=== PATIENT | female | born 1985 | race Caucasian/White ===

== ENCOUNTER → 2019-06-08 10:45 | Outpatient (CLI) | payer BC, SELFPAY ==
[2019-06-08 09:53] VITALS: BMI 33.0
== END ==
PROVIDERS: Referring Provider Obstetrics & Gynecology; Visit Provider Obstetrics & Gynecology
DX: Z34.82 Encounter for supervision of other normal pregnancy, second trimester (principal)
CPT/HCPCS: 36415

== ENCOUNTER 2019-07-27 12:05 | Outpatient (CLI) | payer BC, SELFPAY ==
[2019-07-27 11:30] VITALS: BMI 35.0
[2019-07-27 12:17] VITALS: BMI 34.9
[2019-07-27 12:51] LABS: Hematocrit 37.7 % (37-47); Hemoglobin 12.5 g/dL (12.0-15.0); Mean Corp Hgb Conc 33.2 g/dL (32-36); Mean Corpuscular Hgb 30.7 pg (27.0-32.0); Mean Corpuscular Volume 92.6 fL (81-99); Mean Platelet Vol. 11.9 fl (6.2-12.0); Platelet Count 168 K/mm3 (150-450); RBC Distribution Width CV 13.3 % (11.6-14.6); RBC Distribution Width SD 44.7 fl (35.1-43.9); Red Blood Count 4.07 M/mm3 (4.2-5.4); White Blood Count 12.7 K/mm3 (4.4-11.0)
[2019-07-27 12:57] LABS: Protein, Urine (Random) < 6.0 mg/dL (<11.9); Protein:Creat Ratio 119 mg/g CRE (0-200)
[2019-07-27 13:06] LABS: Prothrombin Time (Protime)PT. 12.6 SECONDS (11.7-14.9)
[2019-07-27 13:20] LABS: Partial Thromboplast Time 24.4 Seconds (24.1-36.2)
[2019-07-27 13:22] LABS: AST(SGOT) 31 U/L (15-37); Alanine Aminotransfer ALT/SGPT 26 U/L (13-56); Creatinine, Serum 0.54 mg/dL (0.55-1.02); EST Glomerular Filtration Rate 138 mL/min (>60); Est Glom Filt Rate - Afr Amer 167 mL/min (>60); Estimated Creatinine Clearance 149.48 ml/min; Uric Acid 4.2 mg/dL (2.6-6.0)
--- NOTE | 2019-07-27 14:00 | OB.TRI.HP_ITS ---
- Problem List (1) Hypertension affecting in third trimester Status: Acute Comment: Sent from physician office for elevated blood pressures with systolic in the 150s range. Pre-e workup to be done. History of Present Illness Date of Service: 07/27/19 Was patient seen by the physician?: No Reason For Visit: R/O PRE-E Date of Service: 07/27/19 Final DAV: 08/20/19 Final DAV Source: LMP Gestational age: 36 Weeks and 4 Days History of Present Illness: Seen in MD office today with elevated blood pressures with systolic in the 150s per RN report Allergies No Known Allergies Allergy (Verified 07/27/19 11:30) - Pertinent Past Medical History Medical History: Past Medical History (Last Reviewed 07/27/19 @ 11:30 by Mali Sanchez) Asthma History of depression Surgical History: Past Surgical History (Last Reviewed 07/27/19 @ 11:30 by Mali Sanchez) H/O shoulder surgery Laboratory Studies: Laboratory Tests 07/27/19 07/27/19 07/27/19 Range/Units 12:20 12:20 12:20 WBC (4.4-11.0) K/mm3 RBC (4.2-5.4) M/mm3 Hgb (12.0-15.0) g/dL Hct (37-47) % MCV (81-99) fL MCH (27.0-32.0) pg MCHC (32-36) g/dL RDW Std Deviation (35.1-43.9) fl RDW Coeff of Alli (11.6-14.6) % Plt Count (150-450) K/mm3 MPV (6.2-12.0) fl PT 12.6 (11.7-14.9) SECONDS INR 1.0 APTT 24.4 (24.1-36.2) Seconds Creatinine 0.54 L (0.55-1.02) mg/dL Estim Creat Clear Calc 149.48 ml/min Est GFR (MDRD) Af Amer 167 (>60) mL/min Est GFR (MDRD) Non-Af 138 (>60) mL/min Uric Acid 4.2 (2.6-6.0) mg/dL AST 31 (15-37) U/L ALT 26 (13-56) U/L U Random Total Protein < 6.0 (<11.9) mg/dL Urine Creatinine 49.50 (NO RANGE EST.) mg/dL Protein/Creatinin Ratio 119 (0-200) mg/g CRE 07/27/19 Range/Units 12:20 WBC 12.7 H (4.4-11.0) K/mm3 RBC 4.07 L (4.2-5.4) M/mm3 Hgb 12.5 (12.0-15.0) g/dL Hct 37.7 (37-47) % MCV 92.6 (81-99) fL MCH 30.7 (27.0-32.0) pg MCHC 33.2 (32-36) g/dL RDW Std Deviation 44.7 H (35.1-43.9) fl RDW Coeff of Alli 13.3 (11.6-14.6) % Plt Count 168 (150-450) K/mm3 MPV 11.9 (6.2-12.0) fl PT (11.7-14.9) SECONDS INR APTT (24.1-36.2) Seconds Creatinine (0.55-1.02) mg/dL Estim Creat Clear Calc ml/min Est GFR (MDRD) Af Amer (>60) mL/min Est GFR (MDRD) Non-Af (>60) mL/min Uric Acid (2.6-6.0) mg/dL AST (15-37) U/L ALT (13-56) U/L U Random Total Protein (<11.9) mg/dL Urine Creatinine (NO RANGE EST.) mg/dL Protein/Creatinin Ratio (0-200) mg/g CRE Impression/Plan RN called medical writer with report that all pre-e labs were good. BPs n unit range from 131/81 - 154/96. Reviewed labs of Cr, Uric Acid, Plt, Urine Protein, Urine Cr, and Protein/Cr ratio. In consult with Dr. Cao, decision to send home on bedrest. To get one dose fo betamethasone 12.5 now and repeat x1 in 24 hours. 24 hour urine collect. Asked if early induction because she has a history of induction due to borderline gestional HTN. Will discuss with Dr. August tomorrow.
[2019-07-27] MEDS: Betamethasone/Betamethasone 30 MG/5 ML Vial 12 MG IM (14:16)
[2019-07-28 13:08] LABS: 24 Hour Urine Protein 260.4 mg/24HR (<150 MG/24HR); 24HR. UA Prot. Total Volume 2100 mL; Urine Protein (24 Hour) 12.4 mg/dL (<11.9)
== END 2019-07-27 14:25 | disposition home health service (06) ==
LOC: WPOUT 12:13 → WP 12:13
PROVIDERS: Referring Provider Obstetrics & Gynecology; Visit Provider Obstetrics & Gynecology
DX: O16.3 Unspecified maternal hypertension, third trimester (principal); Z3A.36 36 weeks gestation of pregnancy
CPT/HCPCS: 36415; 59025; 59050; 81050; 82565; 82570; 84156; 84450; 84460; 84550; 85027; 85610; 85730; 87081; 96372; 99218; G0378; J0702

== ENCOUNTER 2019-07-28 09:20 | Outpatient (CLI) | payer BC, SELFPAY ==
[2019-07-27 12:17] VITALS: BMI 34.9
[2019-07-28 09:47] VITALS: BMI 34.9
[2019-07-28 10:24] LABS: Hematocrit 36.1 % (37-47); Hemoglobin 12.2 g/dL (12.0-15.0); Mean Corp Hgb Conc 33.8 g/dL (32-36); Mean Corpuscular Volume 91.6 fL (81-99); Mean Platelet Vol. 12.1 fl (6.2-12.0); Platelet Count 163 K/mm3 (150-450); RBC Distribution Width CV 13.3 % (11.6-14.6); Red Blood Count 3.94 M/mm3 (4.2-5.4); White Blood Count 18.3 K/mm3 (4.4-11.0)
[2019-07-28 10:34] LABS: AST(SGOT) 26 U/L (15-37); Alanine Aminotransfer ALT/SGPT 27 U/L (13-56); Creatinine, Serum 0.62 mg/dL (0.55-1.02); EST Glomerular Filtration Rate 117 mL/min (>60); Est Glom Filt Rate - Afr Amer 142 mL/min (>60); Estimated Creatinine Clearance 130.19 ml/min; Uric Acid 3.9 mg/dL (2.6-6.0)
[2019-07-28 10:39] LABS: Prothrombin Time (Protime)PT. 12.9 SECONDS (11.7-14.9)
[2019-07-28] MEDS: Betamethasone/Betamethasone 30 MG/5 ML Vial 12 MG IM (12:36)
--- NOTE | 2019-08-03 03:50 | OB.TRI.PN ---
Progress Notes Date of Service: 07/28/19 Progress Note: celestone shot x 2 Laboratory Studies: Laboratory Tests 07/28/19 07/28/19 07/28/19 Range/Units 10:00 10:00 10:00 WBC 18.3 H (4.4-11.0) K/mm3 RBC 3.94 L (4.2-5.4) M/mm3 Hgb 12.2 (12.0-15.0) g/dL Hct 36.1 L (37-47) % MCV 91.6 (81-99) fL MCH 31.0 (27.0-32.0) pg MCHC 33.8 (32-36) g/dL RDW Std Deviation 44.0 H (35.1-43.9) fl RDW Coeff of Alli 13.3 (11.6-14.6) % Plt Count 163 (150-450) K/mm3 MPV 12.1 H (6.2-12.0) fl PT 12.9 (11.7-14.9) SECONDS INR 1.0 APTT 23.0 L (24.1-36.2) Seconds Creatinine 0.62 (0.55-1.02) mg/dL Estim Creat Clear Calc 130.19 ml/min Est GFR (MDRD) Af Amer 142 (>60) mL/min Est GFR (MDRD) Non-Af 117 (>60) mL/min Uric Acid 3.9 (2.6-6.0) mg/dL AST 26 (15-37) U/L ALT 27 (13-56) U/L Multi Select Codes - Urinary/Genital Urinary/Genital CPT Codes: Other Procedure See Report - no charge
== END 2019-07-28 12:45 | disposition home or self-care (01) ==
LOC: WPOUT 09:31 → WP 09:33
PROVIDERS: Referring Provider Obstetrics & Gynecology; Visit Provider Obstetrics & Gynecology
DX: O14.90 Unspecified pre-eclampsia, unspecified trimester (principal); Z3A.00 Weeks of gestation of pregnancy not specified; O60.10X0 Preterm labor with preterm delivery, unspecified trimester, not applicable or unspecified
CPT/HCPCS: 36415; 59025; 59050; 82565; 84450; 84460; 84550; 85027; 85610; 85730; 96372; 99218; G0378; J0702

== ENCOUNTER 2019-07-30 07:10 | Inpatient (IN) | payer BC, SELFPAY ==
[2019-07-30 07:23] VITALS: BMI 34.3
[2019-07-30] MEDS: Lactated Ringers 1,000 ML 50 ML IV (07:45)
[2019-07-30 08:15] LABS: Absolute Lymphocyte Count 2.38 X10^3/uL (0.83-4.51); Absolute Neutrophil Count 8.4 X10^3/uL (2.0-7.7); Basophil# 0.07 X10^3/uL; Basophil% 0.6 % (0-1); Eosinophil# 0.09 X10^3/uL; Eosinophils% 0.7 % (0-5); Hematocrit 36.1 % (37-47); Lymphocyte # 2.38 X10^3/ul (4.0); Lymphocyte % 19.5 % (19-41); Mean Corp Hgb Conc 33.2 g/dL (32-36); Mean Corpuscular Hgb 30.5 pg (27.0-32.0); Mean Corpuscular Volume 91.9 fL (81-99); Mean Platelet Vol. 12.1 fl (6.2-12.0); Monocyte# 1.04 X10^3/uL; Monocyte% 8.5 % (0-10); NRBC Flagged by Analyzer 0 % (0-5); Neutrophil # 8.38 X10^3/uL (2.7-7.7); Neutrophil % 68.9 % (47-70); Platelet Count 174 K/mm3 (150-450); RBC Distribution Width CV 13.2 % (11.6-14.6); RBC Distribution Width SD 44.7 fl (35.1-43.9); Red Blood Count 3.93 M/mm3 (4.2-5.4); White Blood Count 12.2 K/mm3 (4.4-11.0)
[2019-07-30] MEDS: 0.9% Normal Saline 100 ML IV.SOLN. IY (08:35)
[2019-07-30] MEDS: Oxytocin 30 units/NS 500 ml 30 UNITS/500 ML IV.SOLN IV (08:39)
[2019-07-30] MEDS: Lactated Ringers 500 ML 999 ML IV ×2 (15:35→16:30)
[2019-07-30] MEDS: Amnioinfusion- 0.9% NS 1,000 ML IV.SOLN. 500 ML INTRA-UTER (15:48)
[2019-07-30] MEDS: fentaNYL-bupivacaine (epidural) 100 ML BAG EPIDURAL ×2 (17:00→21:46)
[2019-07-30] MEDS: Lactated Ringers 1,000 ML 200 ML IV (19:44)
[2019-07-31] VITALS (18 sets, daily range): BP systolic 91–134; BP diastolic 44–89; PULSE 69–97; RESP 14–18; TEMP 36.4–37.6; O2SAT 96–99
[2019-07-31] MEDS: Lactated Ringers 1,000 ML 200 ML IV ×3 (00:31→10:38)
[2019-07-31] MEDS: fentaNYL-bupivacaine (epidural) 100 ML BAG EPIDURAL ×2 (02:42→07:46)
--- NOTE | 2019-07-31 06:39 | HP.PCM_ITS ---
- Problem List (1) Encounter for induction of labor Status: Acute (2) Hypertension affecting in third trimester Status: Acute Comment: Sent from physician office for elevated blood pressures with systolic in the 150s range. Pre-e workup to be done. (3) History of depression Status: Acute Comment: ankur in past. (4) Status: Acute Qualifiers: Comment: KEIRA 30 weeks, robles; urine culture- neg; glucose 100 (5) Supervision of normal intrauterine in multigravida in third trimester Status: Acute Comment: PRR DAV 08/20/19 boy PC Tricia, [employer], boy, [place] History Date of Admission: 07/30/19 Final DAV: 08/20/19 Final DAV Source: LMP Gestational age: 37 Weeks and 1 Days History of this : This is a 33 year-old, , at 37 weeks gestational age presents for IOL secondary to GHTN. she has had elevated bps and intermittent headaches and nausea vomiting. she denies any vb lof admits good fm Medical History: Medical History (Last Reviewed 07/27/19 @ 11:30 by Mali Sanchez) Asthma J45.909 History of depression Z87.59, Z86.59 Surgical History: Surgical History (Last Reviewed 07/27/19 @ 11:30 by Mali Sanchez) H/O shoulder surgery Z98.890 Allergies No Known Allergies Allergy (Verified 07/27/19 11:30) Home Medications: Home Medications vitamin#30 30 mg iron-10 mg iron-folic acid 1 mg-omg3 capsule 1 cap PO DAILY cap 06/08/19 Smoking Status: Never smoker Alcohol: None Number of Fetus(es): 1 NST - FHR Rate Baby A Baseline: 140 Variability:: Moderate Accelerations:: 15 x 15 Decelerations:: None NST Reactive:: Yes FHR Category:: Category I Uterine Activity:: no regular History Past Pregnancies: Past Pregnancies 2 previous term long labors pushed 3 1/2-4 hours both 8 lbs. nuchal cord x 4 on second delivery Labs: Mom's Labs & Results 07/30/19 07/30/19 07:50 07:50 WBC 12.2 H RBC 3.93 L Hgb 12.0 Hct 36.1 L MCV 91.9 MCH 30.5 MCHC 33.2 RDW Std Deviation 44.7 H RDW Coeff of Alli 13.2 Plt Count 174 MPV 12.1 H Immature Gran % (Auto) 1.800 H Neut % (Auto) 68.9 Lymph % (Auto) 19.5 Pope % (Auto) 8.5 Eos % (Auto) 0.7 Baso % (Auto) 0.6 Absolute Neuts (auto) 8.4 H Absolute Lymphs (auto) 2.38 Nucleated RBC % 0 Blood Type O POSITIVE Antibody Screen NEGATIVE Course Did the patient receive Yes care? Labs Blood Type: O RH: POSITIVE RPR/VDRL/Syphilis Nonreactive Rubella status Immune HbSAg Negative Date Done: 02/24/19 Chlamydia Negative Gonorrhea Negative HIV/AIDS Non-Reactive Group B Strep: Negative Current Obstetrical History Gestational Diabetes No Incompetent Cervix No Infertility No IUGR No Macrosomia No Hypertension/Pre-eclampsia Yes Placenta Previa/Abruption No PTL/PROM No Uterine anomaly No Oligohydramnios No Polyhydramnios No Multiple gestation No Past Medical History Asthma Yes Diabetes No Hypertension No Heart disease No Mitral valve prolapse Yes Neurologic/Seizure disorder/ No Migraines Kidney disease No Liver disease No Varicosities No Clotting disorders/Hx of DVT No Thyroid Dysfunction No Other medical diseases No Psychiatric disorders No Major trauma No Abnormal PAP smear No Sleep apnea No Mammogram in the last 2 years No Social History Marital Status: Alleged father jessee blake Hx Smoking No Smoking Status Never smoker Expected Infant Delivery Method: Spontaneous Vaginal Review of Systems Constitutional: Denies: Fever, Malaise Eyes: Denies: Blurred vision, Vision Change HEENT: Denies: Head Aches, Visual Changes Cardiovascular: Denies: Chest Pain, Palpitations Respiratory: Denies: Cough, Shortness of Breath, Wheezing Gastrointestinal: Denies: Abdominal Pain, Diarrhea, Nausea, Vomiting Genitourinary: Denies: Dysuria, Hematuria Musculoskeletal: Denies: Joint Pain, Muscle pain Skin: Denies: Lesions, Rash Neurological: Denies: Blurred vision, Focal weakness, Headaches Psychiatric: Denies: Anxiety, Depression Endocrine: Denies: Heat/ Cold Intolerance Hematologic/ Lymphatic: Denies: Easy Bruising, Easy Bleeding Physical Exam General: Alert, Cooperative, No apparent distress HEENT: Atraumatic, Normocephalic. Negative for: Thyromegaly, Lymphadenopathy Cardiovascular: Regular rate Lungs: Normal air movement Abdomen: Soft, Non Tender, Gravid Neurological: Deep Tendon Reflexes 2+/4 and Symmetrical, Neuro grossly intact. Negative for: Clonus OBEDIENCE TRAINER: Normal external genitalia. Negative for: Vulvar lesions Estimated gestational size: Appropriate for gestational size Presentation: Cephalic Cervix Dilation (cm): 1 Assessment/Plan All Active Problems (Last Reviewed 07/27/19 @ 11:30 by Mlai Sanchez) Hypertension affecting in third trimester (Acute) Encounter for induction of labor (Acute) History of depression (Acute) (Acute) Supervision of normal intrauterine in multigravida in third trimester (Acute) This is a 33 year-old, , at 37 weeks gestational age presents for IOL. Patient presents IOL, plan management for , pitocin/AROM after boyd bulb. Pain management: plans epidural. GBS negative. Management of any complications: ghtn I have reviewed the [facility] and made any clinically relevant updates.
--- NOTE | 2019-07-31 06:43 | PN_ITS ---
Progress Note FHT: 140 Moderate variability reactive no decelerations category I tracing isolated periodic variables. Previous heart rate tracings of variables resolved with amnioinfusion and position changes. [place]: Adequate every 2 to 3-minute contractions Reviewed entire tracing with nurse at the bedside. Discussed with the patient directed labor progress. Pitocin has been on and off throughout the day and evening due to heart rate tracing changes. After reviewing she has had adequate contractions for the last 6 to 7 hours and has been ruptured for 16 hours with Pitocin on for 22 hours however some of that it was actually turned off. Patient and requesting expectant management with continued Pitocin augmentation. Side-lying release done x2 and patient now on hands and knees and fire hydrant. Reassuring heart rate tracing plan expectant management at present and reevaluate at 9 AM.
[2019-07-31] MEDS: Sodium Citrate/Citric Acid 30 ML UDC PO (11:24)
--- NOTE | 2019-07-31 11:34 | PCM.OPRPT ---
Problem List (1) Encounter for induction of labor Status: Acute (2) Hypertension affecting in third trimester Status: Acute Comment: Sent from physician office for elevated blood pressures with systolic in the 150s range. Pre-e workup to be done. (3) History of depression Status: Acute Comment: zoloft in past. (4) Status: Acute Qualifiers: Comment: KEIRA 30 weeks, robles; urine culture- neg; glucose 100 (5) Supervision of normal intrauterine in multigravida in third trimester Status: Acute Comment: PRR DAV 08/20/19 boy PC Tricia, Rastafari, boy, Chance Delivery Classification: TRACY Final DAV: 08/20/19 Gestational age: 37 Weeks and 4 Days regional psychiatric director: Aliyah Shelley Special Medications: ancef azithro floseal Implants Used: none Date of Procedure: 07/31/19 Pre-Operative Diagnosis: ftp, ghtn Post-Operative Diagnosis: same Indications for : Failure to Progress, Arrrest of Descent Description of Procedure: After 27 hours of Pitocin and 1 hours after rupture of membranes and adequate contractions for 12 hours patient was still only 5 cm dilated. Head was still -3 the decision was made for a primary low transverse . Patient and her were in agreement to the decision for mode of delivery. wpidural was found to be adequate The patient was placed in the dorsal supine position with leftward tilt. Patient was prepped and draped in the normal sterile fashion. Pfannenstiel skin incision was made with the scalpel and carried through to the underlying layer of fascia with the scalpel. Fascia was nicked in the midline and the incision extended laterally. The rectus bellies were dissected off superiorly and inferiorly with out complication both sharply and bluntly. The peritoneum was entered digitally. The incision was stretched and a low transverse uterine incision was made with the scalpel. The 's head was delivered atraumatically followed by the anterior and posterior shoulders without complication the rest of the infant delivered. The cord was clamped and cut and the infant was handed off to awaiting nurse. The placenta was delivered spontaneously immediately following and was noted to be intact and have a three-vessel cord. The uterus was exteriorized cleared of all clots and debris, and the incision was closed in a double layer closure using #1 Monocryl. floseal used to obtain hemostasis. The ovaries and fallopian tubes were noted to be within normal limits. The uterus was returned to the maternal abdomen and gutters were cleared of all clots and debris. The peritoneum was closed with 3-0 Monocryl in a running fashion. Gloves were changed prior to fascial closure. Fascia was closed with 0 PDS in a running fashion. Subcutaneous tissue was copiously irrigated and the skin was closed with 3-0 Monocryl in a subcuticular fashion. Mepilex dressing was applied without complication. Patient was taken to recovery in stable condition. Amniotic Membrane Rupture Type: Artificial Placenta Disposition: [facility] Drain: Velez to straight drain Cord Entanglement: None Infant Gender: Male Delayed cord clamping: Yes Antibiotic Given: Ancef 2 grams IV x1, Zithromax 500 mg/5 mL X1 Complications: None - Admit VTE Documentation VTE Present on Admission: No Multi Select Codes - Urinary/Genital Urinary/Genital CPT Codes: 80960 Delivery [facility]
[2019-07-31] MEDS: Cefazolin 2 GM in 0.9% Normal Saline 100 ML IV (11:50)
[2019-07-31] MEDS: Oxytocin 30 units/NS 500 ml 30 UNITS/500 ML IV.SOLN 167 UNITS IV (12:50)
[2019-07-31] MEDS: Lactated Ringers 1,000 ML 100 ML IV (17:00)
--- NOTE | 2019-07-31 17:30 | NURSING ---
epidural catheter removed. blue tip intact
[2019-07-31] MEDS: Ketorolac 30 MG/ML Syringe IV ×2 (17:54→23:41)
[2019-08-01] VITALS (8 sets, daily range): BP systolic 108–133; BP diastolic 54–80; PULSE 81–98; RESP 16; TEMP 36.4–36.9; O2SAT 98–99
[2019-08-01] MEDS: Ketorolac 30 MG/ML Syringe IV (05:31)
[2019-08-01 05:46] LABS: Hematocrit 32.5 % (37-47); Hemoglobin 10.5 g/dL (12.0-15.0); Mean Corp Hgb Conc 32.3 g/dL (32-36); Mean Corpuscular Hgb 30.7 pg (27.0-32.0); Mean Platelet Vol. 11.7 fl (6.2-12.0); Platelet Count 157 K/mm3 (150-450); RBC Distribution Width CV 13.2 % (11.6-14.6); RBC Distribution Width SD 46.1 fl (35.1-43.9); Red Blood Count 3.42 M/mm3 (4.2-5.4); White Blood Count 16.5 K/mm3 (4.4-11.0)
[2019-08-01] MEDS: Senna/Docusate Sodium 1 Tablet PO (06:34)
[2019-08-01] MEDS: Naproxen 250 MG Tablet PO ×2 (09:14→17:03)
--- NOTE | 2019-08-01 10:36 | PCM.PN.OB ---
Patient Problems: Active and Suspected Problems (Last Reviewed 07/27/19 @ 11:30 by Mali Sanchez) Encounter for induction of labor (Acute) Subjective: IV infiltrated-some pain management issues but did not want IV restart. no CP SOB N V ambulating well, tolerating po lochia moderate, going well - Physical Exam Vitals/I&O's: Vital Signs Temp Pulse Resp BP Pulse Ox 98.4 F 95 16 133/80 H 99 08/01/19 08:05 08/01/19 08:05 08/01/19 08:05 08/01/19 08:05 08/01/19 08:05 Oxygen Delivery Method Room Air Weight: 225 lb 15.581 oz Body Mass Index (BMI) 34.3 Intake and Output for Last 24 Hours 07/30/19 07/31/19 08/01/19 23:59 23:59 23:59 Intake Total 2955.06 / 2955.06 6006.99 / 6006.99 Output Total 1000 / 1000 4050 / 4050 1500 / 1500 Balance 1955.06 / 1955.06 1956.99 / 1956.99 -1500 / -1500 General: Alert, Oriented x3 Abdomen: Soft, Non-Distended, - - Dressing dry and intact, old drainage only. FF below U Laboratory Results 08/01/19 05:30: WBC 16.5 H, RBC 3.42 L, Hgb 10.5 L, Hct 32.5 L, MCV 95.0, MCH 30.7, MCHC 32.3, RDW Std Deviation 46.1 H, RDW Coeff of Alli 13.2, Plt Count 157, MPV 11.7 Current Medications Acetaminophen (Tylenol) 1,000 mg PO Q8H PRN PRN Reason: Pain Score 1-3/10 Bisacodyl (Dulcolax) 10 mg RECTAL UD PRN PRN Reason: If no BM Hydrocortisone (Hytone) 1 applic TOPICAL TID PRN PRN; Protocol PRN Reason: Discomfort Lactated Ringer's () 1,000 mls @ 100 mls/hr IV .Q10H LENA Last Admin: 08/01/19 09:29 Dose: Not Given Documented by: Naloxone HCl 4 mg/ Dextrose 504 mls @ 0 mls/hr IV .Q0M PRN; Protocol PRN Reason: Respiratory depression Naloxone HCl 4 mg/ Dextrose 504 mls @ 0 mls/hr IV .Q0M PRN; Protocol PRN Reason: To maintain Resp. rate >10 Ketorolac Tromethamine (Toradol) 30 mg IV Q6 LEAN Stop: 08/02/19 12:01 Last Admin: 08/01/19 05:31 Dose: 30 mg Documented by: Naloxone HCl (Narcan) 0.02 mg IV Q1M PRN PRN Reason: RR <10 and pt unresponsive Naproxen (Naprosyn) 250 - 500 mg PO Q8H PRN PRN PRN Reason: Pain Score 1-3/10 Last Admin: 08/01/19 09:14 Dose: 500 mg Documented by: Ondansetron HCl (Zofran) 4 mg IV Q4H PRN PRN PRN Reason: Nausea Oxycodone HCl (Oxyir) 5 - 10 mg PO Q4H PRN PRN PRN Reason: Pain Score 4-10/10 Prochlorperazine Edisylate (Compazine Iv) 10 mg IV Q6H PRN PRN PRN Reason: NAUSEA Senna/Docusate Sodium (Senokot-S, Peyton-Colace) 0 tablet PO DAILY PRN PRN Reason: Constipation Last Admin: 08/01/19 06:34 Dose: 1 tablet Documented by: Simethicone (Mylicon) 80 mg PO PCHS PRN PRN Reason: Indigestion/stomach pain Sodium Chloride () 5 - 15 ml IV UD PRN PRN Reason: SALINE FLUSH Medical Necessity - Tobacco Use Smoking Status: Never smoker Assessment/Plan All Active Problems (Last Reviewed 07/27/19 @ 11:30 by Mali Sanchez) Hypertension affecting in third trimester (Acute) Encounter for induction of labor (Acute) History of depression (Acute) (Acute) Supervision of normal intrauterine in multigravida in third trimester (Acute) s/p LTCS PPD # 1. routine post care 2. breast feeding- support given 3. rh positive 4. rubella immune 5. Discussed management with alternating tylenol and aleve until can have oxy at noon.
[2019-08-01] MEDS: Acetaminophen 500 MG Tablet 1000 MG PO ×2 (10:40→20:00)
[2019-08-01] MEDS: oxyCODONE 5 MG Tablet PO ×4 (12:47→22:42)
[2019-08-02 01:05] VITALS: BP 104/60; PULSE 91; RESP 16; TEMP 36
[2019-08-02] MEDS: Naproxen 250 MG Tablet PO ×3 (02:10→17:36)
[2019-08-02] MEDS: oxyCODONE 5 MG Tablet PO ×2 (05:15→16:22)
[2019-08-02] MEDS: Acetaminophen 500 MG Tablet 1000 MG PO ×3 (08:25→23:58)
[2019-08-02 08:30] VITALS: BP 117/66; PULSE 87; RESP 17; TEMP 36.5
[2019-08-02] MEDS: Senna/Docusate Sodium 1 Tablet PO (09:54)
--- NOTE | 2019-08-02 10:54 | PCM.PN.OB ---
Patient Problems: Active and Suspected Problems (Last Reviewed 07/27/19 @ 11:30 by Mali Sanchez) Encounter for induction of labor (Acute) Subjective: doing well no complaints pain better controlled today, no CP SOB N V ambulating well tolerating po lochia moderate, going well - Physical Exam Vitals/I&O's: Vital Signs Temp Pulse Resp BP Pulse Ox 97.7 F L 87 17 117/66 98 08/02/19 08:30 08/02/19 08:30 08/02/19 08:30 08/02/19 08:30 08/01/19 11:55 Oxygen Delivery Method Room Air Weight: 225 lb 15.581 oz Body Mass Index (BMI) 34.3 Intake and Output for Last 24 Hours 07/31/19 08/01/19 08/02/19 23:59 23:59 23:59 Intake Total 6006.99 / 6006.99 Output Total 4050 / 4050 1500 / 1500 Balance 1956.99 / 1956.99 -1500 / -1500 General: Alert Abdomen: Soft, Non-Distended, - - FF below U. Dressing dry and intact except old drainage. Current Medications Acetaminophen (Tylenol) 1,000 mg PO Q8H PRN PRN Reason: Pain Score 1-3/10 Last Admin: 08/02/19 08:25 Dose: 1,000 mg Documented by: Bisacodyl (Dulcolax) 10 mg RECTAL UD PRN PRN Reason: If no BM Hydrocortisone (Hytone) 1 applic TOPICAL TID PRN PRN; Protocol PRN Reason: Discomfort Naloxone HCl 4 mg/ Dextrose 504 mls @ 0 mls/hr IV .Q0M PRN; Protocol PRN Reason: Respiratory depression Naloxone HCl 4 mg/ Dextrose 504 mls @ 0 mls/hr IV .Q0M PRN; Protocol PRN Reason: To maintain Resp. rate >10 Naloxone HCl (Narcan) 0.02 mg IV Q1M PRN PRN Reason: RR <10 and pt unresponsive Naproxen (Naprosyn) 250 - 500 mg PO Q8H PRN PRN PRN Reason: Pain Score 1-3/10 Last Admin: 08/02/19 09:54 Dose: 500 mg Documented by: Ondansetron HCl (Zofran) 4 mg IV Q4H PRN PRN PRN Reason: Nausea Oxycodone HCl (Oxyir) 5 - 10 mg PO Q4H PRN PRN PRN Reason: Pain Score 4-10/10 Last Admin: 08/02/19 05:15 Dose: 5 mg Documented by: Prochlorperazine Edisylate (Compazine Iv) 10 mg IV Q6H PRN PRN PRN Reason: NAUSEA Senna/Docusate Sodium (Senokot-S, Peyton-Colace) 0 tablet PO DAILY PRN PRN Reason: Constipation Last Admin: 08/02/19 09:54 Dose: 1 tablet Documented by: Simethicone (Mylicon) 80 mg PO PCHS PRN PRN Reason: Indigestion/stomach pain Sodium Chloride () 5 - 15 ml IV UD PRN PRN Reason: SALINE FLUSH Medical Necessity - Tobacco Use Smoking Status: Never smoker Assessment/Plan All Active Problems (Last Reviewed 07/27/19 @ 11:30 by Mali Sanchez) Hypertension affecting in third trimester (Acute) Encounter for induction of labor (Acute) History of depression (Acute) (Acute) Supervision of normal intrauterine in multigravida in third trimester (Acute) s/p LTCS PPD # 2 1. routine post care 2. breast feeding- support given 3. rh positive 4. rubella immune
[2019-08-02 14:26] VITALS: BP 108/63; PULSE 94; RESP 16; TEMP 36.6
[2019-08-02 19:33] VITALS: BP 115/63; PULSE 83; RESP 16; TEMP 36.4
[2019-08-03] MEDS: Naproxen 250 MG Tablet PO ×3 (01:24→18:46)
[2019-08-03 01:25] VITALS: BP 114/68; PULSE 78; RESP 14; TEMP 36.2; O2SAT 95
[2019-08-03] MEDS: oxyCODONE 5 MG Tablet PO (06:43)
[2019-08-03 08:15] VITALS: BP 126/73; PULSE 62; RESP 18; TEMP 36.3
[2019-08-03] MEDS: Acetaminophen 500 MG Tablet 1000 MG PO ×2 (08:24→16:51)
[2019-08-03] MEDS: Senna/Docusate Sodium 1 Tablet PO (08:25)
--- NOTE | 2019-08-03 12:49 | CASEMGMT ---
Social Work Labor and Delivery Unit Patient Address: [address] [place] [address] [place] [address] Phone number: [phone] Date of Referral/Notification: 07.31.2019 Time of Referral: 154 Referred By: Dr. Schneider Reason for Referral: maternal history of depression Date of Intervention: 08.03.2019 Time of Intervention: 1100 Informant: Medical record and mother of baby (MOB) Gaby Cutler History: ADELE is a 33-year-old female, to 3 after delivering baby boy Rogelio Henley via primary caesarian section. MOB transferred care to [employer] from [place] at 30 weeks when the family moved to [facility]. care in [place] started at 9 weeks gestation. Baby Rogelio was born at 37 weeks gestation, weight 7 pounds 4 ounces, Apgars 9 and 9 at 1 and 5 minutes of life. Delivery induced due to maternal pre-eclampsia. ADELE is to father of baby (JESSICA) Chance Henley, who is the father to all of MOB?s children. Children include: Tricia Mercado (born 06.11.2013) and Voodoo (born 05.10.2016). MOB reports some depression after Tricia was born, which at the time MOB attributed to just being the baby blues. ADELE was a first-time parent living in [place] with all family supports being in the [facility]. No medication or counseling at that time. MOB reports after Voodoo was born, depression developed after a couple of months and relates this to exhaustion in dealing with a colicky baby. ADELE reports was on medicine for about 4 months and then went off and was fine. 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 ADELE is college educated and has no issues with reading, writing, or learning comprehension. Assessment: Met with ADELE who was Rogelio and Voodoo was sitting on couch. Later joined by JESSICA Fletcher. MOB reports to be doing okay currently, describes self to be an emotional person and that having a was not in MOB?s expectations for delivery, as well as this being MOB?s first major surgery and MOB not really knowing what to expect. MOB reports she cries when she needs to and is able to voice when she is having a hard time. MOB reports to have a prescription for an antidepressant that the OBGYN provided but MOB is uncertain that she will take the medicine right away. MOB reports that does not like to be dependent on medicine, so is hesitant to just take the medicine. MOB reported that her previous episodes of never impacted care of children or bonding, attributing this as a reason not to jump into taking the prescription. MOB reports to be a smart person and has no problem speaking up if needed, as has done so before. Addressed with MOB that some women who do not like the idea of medicine are more open to seeing a therapist. MOB reports would not see a counselor as MOB perceives self to have a happy life and nothing to complain about, that counseling is not something that would interest MOB. MOB voices that she would be more open to medicine before counseling. To normalize mood and anxiety disorders, this pattern chart writer gently introduced that happens to many women, between 1:5 and 1:7. MOB voiced knowing this is an important topic and did thank this pattern chart writer for information and accepted packet offered. MOB was pleasant, held good eye contact, appropriate affect noted. Attentive and appropriate with during social work visit. When FOB came to room, FOB engaged in conversation intermittently, relaxed mannerisms. FOB touched briefly on how difficult it was after Voodoo was born, as nothing would soothe Voodoo for about a year and a half. MOB reports FOB is helpful to MOB in keeping MOB grounded and talking things through. FOB will be off of work for a couple of weeks to help out. MOB denies any needs or concerns for home going, thanked this pattern chart writer for information. Both MOB and FOB expressed appreciation of care provided to the family this admission. Note, this pattern chart writer also touched base with nursing prior to meeting with MOB. Spoke with Bibiana BAH who reports MOB has been appropriate today, and that MOB spent much time talking with RN. No concerns voiced by staff this date on mother/child interactions or bonding. Plan: MOB and baby to home when ready. MOB has prescription for an antidepressant should MOB start to feel symptoms of mood and anxiety issues arise in this period. MOB has been provided with mood and anxiety disorder resource packet that includes educational information on topic, common thoughts during and after , online and texting supports, as well as local supports. Left this pattern chart writer?s card should MOB have any questions later one about information provided. No further needs requested or indicated. -STAN Quintanilla, DIRECT CARE STAFFER
--- NOTE | 2019-08-03 13:36 | PCM.PN.OB ---
Patient Problems: Active and Suspected Problems (Last Reviewed 07/27/19 @ 11:30 by Mali Sanchez) Encounter for induction of labor (Acute) Subjective: doing well no complaints pain controlled no CP SOB N V ambulating well tolerating po lochia moderate, going well - Physical Exam Vitals/I&O's: Vital Signs Temp Pulse Resp BP Pulse Ox 97.4 F L 62 18 126/73 H 95 08/03/19 08:15 08/03/19 08:15 08/03/19 08:15 08/03/19 08:15 08/03/19 01:25 Oxygen Delivery Method Room Air Weight: 225 lb 15.581 oz Body Mass Index (BMI) 34.3 Intake and Output for Last 24 Hours 08/01/19 08/02/19 08/03/19 23:59 23:59 23:59 Output Total 1500 / 1500 Balance -1500 / -1500 Current Medications Acetaminophen (Tylenol) 1,000 mg PO Q8H PRN PRN Reason: Pain Score 1-3/10 Last Admin: 08/03/19 08:24 Dose: 1,000 mg Documented by: Bisacodyl (Dulcolax) 10 mg RECTAL UD PRN PRN Reason: If no BM Hydrocortisone (Hytone) 1 applic TOPICAL TID PRN PRN; Protocol PRN Reason: Discomfort Naloxone HCl 4 mg/ Dextrose 504 mls @ 0 mls/hr IV .Q0M PRN; Protocol PRN Reason: Respiratory depression Naloxone HCl 4 mg/ Dextrose 504 mls @ 0 mls/hr IV .Q0M PRN; Protocol PRN Reason: To maintain Resp. rate >10 Naloxone HCl (Narcan) 0.02 mg IV Q1M PRN PRN Reason: RR <10 and pt unresponsive Naproxen (Naprosyn) 250 - 500 mg PO Q8H PRN PRN PRN Reason: Pain Score 1-3/10 Last Admin: 08/03/19 09:47 Dose: 500 mg Documented by: Ondansetron HCl (Zofran) 4 mg IV Q4H PRN PRN PRN Reason: Nausea Oxycodone HCl (Oxyir) 5 - 10 mg PO Q4H PRN PRN PRN Reason: Pain Score 4-10/10 Last Admin: 08/03/19 06:43 Dose: 5 mg Documented by: Prochlorperazine Edisylate (Compazine Iv) 10 mg IV Q6H PRN PRN PRN Reason: NAUSEA Senna/Docusate Sodium (Senokot-S, Peyton-Colace) 0 tablet PO DAILY PRN PRN Reason: Constipation Last Admin: 08/03/19 08:25 Dose: 1 tablet Documented by: Simethicone (Mylicon) 80 mg PO PCHS PRN PRN Reason: Indigestion/stomach pain Last Admin: 08/02/19 19:44 Dose: 80 mg Documented by: Sodium Chloride () 5 - 15 ml IV UD PRN PRN Reason: SALINE FLUSH Medical Necessity - Tobacco Use Smoking Status: Never smoker Assessment/Plan All Active Problems (Last Reviewed 07/27/19 @ 11:30 by Mali Sanchez) Hypertension affecting in third trimester (Acute) Encounter for induction of labor (Acute) History of depression (Acute) (Acute) Supervision of normal intrauterine in multigravida in third trimester (Acute) s/p LTCS PPD # 3 1. routine post care 2. breast feeding- support given 3. rh positive 4. rubella immune
--- NOTE | 2019-08-03 13:37 | DCINST_ITS ---
Discharge Diet: No Restrictions Discharge Activity: Return to Normal Activity, May not drive while taking narcotic pain medications., May Shower May resume sexual activity in: 4-6 weeks Call your doctor if your incision/area has: Continuous Slow Oozing, Sudden Increased Bleeding, Increased Pain/ Swelling, Increased Redness, Foul Smelling Discharge Additional Instructions: If you experience any of the following, contact your healthcare provider. * Bleeding that soaks a pad every hour for 2 hours * Fever 100.4 or higher * Unrelieved incision or abdominal pain * Swelling, redness, discharge or bleeding from your incision or episiotomy site * Your incision begins to separate * Problems urinating (including inability to urinate or burning while urinating). * Visual changes * Severe headache * Flu-like symptoms * Pain or redness in one of both of your breasts * Pain, warmth, tenderness or swelling in your legs, especially the calf area * Frequent nausea and vomiting * Symptoms of depression or anxiety If you experience any of the following, call 911 or go to the nearest Emergency Room. * Chest pain * Problems breathing * Seizure activity * Partial or complete paralysis of a body part, slurred speech, weakness or drooping of the face, or a sudden inability to walk or hold your balance Allergies/Adverse Reactions: Allergies No Known Allergies Allergy (Verified 07/27/19 11:30) Medications to take at Discharge vitamin#30 30 mg iron-10 mg iron-folic acid 1 mg-omg3 capsule 1 cap PO DAILY cap 06/08/19 Naproxen [Naprosyn] 250 - 500 mg PO Q8H PRN PRN #30 tab 08/03/19 Oxycodone HCl/Acetaminophen [Percocet 5-325] 1 - 2 tablet PO Q6H PRN PRN 7 Days #28 tablet 08/03/19 The following prescriptions were given: Naproxen [Naprosyn] 250 - 500 mg PO Q8H PRN PRN #30 tab PRN Reason: MILD PAIN Transmission Status: Pending to [facility] Oxycodone HCl/Acetaminophen [Percocet 5-325] 1 - 2 tablet PO Q6H PRN PRN 7 Days #28 tablet PRN Reason: Moderate-Severe pain Transmission Status: Sent to [facility] Please Follow Up With: Tania Schneider MD - [phone] When: Call to make an appointment with your doctor in 6 weeks. If you had elevated Blood pressure or 4th degree laceration you will need to be seen in 2 weeks. Primary Care Physician: Care Physician,No Primary [Primary Care Provider] - Test Results: Test results from this visit will be discussed in further detail at your follow- up appointment, if applicable.
--- NOTE | 2019-08-03 13:45 | DCINST_ITS ---
Discharge Diet: No Restrictions Discharge Activity: Return to Normal Activity, May not drive while taking narcotic pain medications., May Shower May resume sexual activity in: 4-6 weeks Call your doctor if your incision/area has: Continuous Slow Oozing, Sudden Increased Bleeding, Increased Pain/ Swelling, Increased Redness, Foul Smelling Discharge Additional Instructions: If you experience any of the following, contact your healthcare provider. * Bleeding that soaks a pad every hour for 2 hours * Fever 100.4 or higher * Unrelieved incision or abdominal pain * Swelling, redness, discharge or bleeding from your incision or episiotomy site * Your incision begins to separate * Problems urinating (including inability to urinate or burning while urinating). * Visual changes * Severe headache * Flu-like symptoms * Pain or redness in one of both of your breasts * Pain, warmth, tenderness or swelling in your legs, especially the calf area * Frequent nausea and vomiting * Symptoms of depression or anxiety If you experience any of the following, call 911 or go to the nearest Emergency Room. * Chest pain * Problems breathing * Seizure activity * Partial or complete paralysis of a body part, slurred speech, weakness or drooping of the face, or a sudden inability to walk or hold your balance Allergies/Adverse Reactions: Allergies No Known Allergies Allergy (Verified 07/27/19 11:30) Medications to take at Discharge vitamin#30 30 mg iron-10 mg iron-folic acid 1 mg-omg3 capsule 1 cap PO DAILY cap 06/08/19 Naproxen [Naprosyn] 250 - 500 mg PO Q8H PRN PRN #30 tab 08/03/19 Oxycodone HCl/Acetaminophen [Percocet 5-325] 1 - 2 tablet PO Q6H PRN PRN 7 Days #28 tablet 08/03/19 The following prescriptions were given: Naproxen [Naprosyn] 250 - 500 mg PO Q8H PRN PRN #30 tab PRN Reason: MILD PAIN Transmission Status: Pending to [facility] Oxycodone HCl/Acetaminophen [Percocet 5-325] 1 - 2 tablet PO Q6H PRN PRN 7 Days #28 tablet PRN Reason: Moderate-Severe pain Transmission Status: Sent to [facility] Follow-Up: Call to make an appointment with your doctor for an incision check in 1-2 weeks. You will also need a 6 week post- follow up appointment. Test results from this visit will be discussed in further detail at your follow- up appointment, if applicable. Primary Care Physician: Care Physician,No Primary [Primary Care Provider] -
[2019-08-03 14:20] VITALS: BP 117/66; PULSE 64; RESP 18; TEMP 36.6
[2019-08-03 18:45] VITALS: BP 114/64; PULSE 72; RESP 12; TEMP 37.1
--- NOTE | 2019-08-04 05:16 | PCM.DC.SUM ---
Discharge Date and Diagnosis Date of Admission: 07/30/19 Date of Discharge: 08/03/19 - Primary Discharge Diagnosis post primary for FTP Hospital Course and Treatment Consultations 07/30/19 07:36 Consult: Anesthesia Routine Comment: Reason For Exam: Labor Operations: - - ltcs Summary of Care Provided: The patient is a 33 year old F presented for induction of labor secondary to gestational hypertension at 37 weeks. Patient had a history of 2 previous vaginal deliveries however there were a long protracted labors with maternal pushing for 3-1/2 to 4 hours to obtain successful vaginal delivery. Patient progressed through labor and experienced an arrest of dilation at 5 cm for significantly prolonged course even with 12 hours of adequate contractions and over 24 hours of Pitocin and over 18 hours of rupture of membranes. Decision for primary low transverse was made and patient proceeded with delivery. patient underwent a section and had a routine recovery with a return of bowel and bladder function, was ambulating, voiding, and tolerating po, and was stable for discharge to home on POD 3. - Physical Exam Vitals/I&O's: Vital Signs Temp Pulse Resp BP Pulse Ox 98.7 F 72 12 114/64 95 08/03/19 18:45 08/03/19 18:45 08/03/19 18:45 08/03/19 18:45 08/03/19 01:25 Oxygen Delivery Method Room Air Weight: 225 lb 15.581 oz Body Mass Index (BMI) 34.3 Discharge Diet: No Restrictions Discharge Activity: Return to Normal Activity, May not drive while taking narcotic pain medications., May Shower May resume sexual activity in: 4-6 weeks Call your doctor if your incision/area has: Continuous Slow Oozing, Sudden Increased Bleeding, Increased Pain/ Swelling, Increased Redness, Foul Smelling Discharge Home Medications: Medications to take at Discharge vitamin#30 30 mg iron-10 mg iron-folic acid 1 mg-omg3 capsule 1 cap PO DAILY cap 06/08/19 Naproxen [Naprosyn] 250 - 500 mg PO Q8H PRN PRN #30 tab 08/03/19 Oxycodone HCl/Acetaminophen [Percocet 5-325] 1 - 2 tab PO Q6H PRN PRN 7 Days #28 tab 08/03/19 Following Prescrptions Were Given to Patient: Naproxen [Naprosyn] 250 - 500 mg PO Q8H PRN PRN #30 tab PRN Reason: MILD PAIN Transmission Status: Received by [facility] Oxycodone HCl/Acetaminophen [Percocet 5-325] 1 - 2 tab PO Q6H PRN PRN 7 Days #28 tab PRN Reason: Moderate-Severe pain Transmission Status: Received by [facility] Primary Care Physician: Care Physician,No Primary [Primary Care Provider] - Please follow up with your Primary Care Physician in: 2 weeks Please Follow Up With: Tania Schneider MD When: 2 weeks, incision check Please Follow Up With: Tania Schneider MD When: 4-6 weeks, post check up Medical Necessity - Tobacco Use Smoking Status: Never smoker Meaningful Use Info Meaningful Use Diagnoses (Choose all that apply): None applicable
== END 2019-08-03 18:45 | disposition home or self-care (01) | DRG 788 ==
PROVIDERS: Admitting Provider Obstetrics & Gynecology; Referring Provider Obstetrics & Gynecology; Visit Provider Obstetrics & Gynecology
DX: O62.0 Primary inadequate contractions (principal); O13.4 Gestational [pregnancy-induced] hypertension without significant proteinuria, complicating childbirth; O99.52 Diseases of the respiratory system complicating childbirth; J45.909 Unspecified asthma, uncomplicated; Z3A.37 37 weeks gestation of pregnancy; Z37.0 Single live birth; Z87.59 Personal history of other complications of pregnancy, childbirth and the puerperium; Z86.59 Personal history of other mental and behavioral disorders; M41.9 Scoliosis, unspecified
CPT/HCPCS: 59025; 59050; 85025; 85027; 86850; 86900; 86901; 99218; J7030; J7120; G0378; J2405

== ENCOUNTER → 2019-09-07 18:17 | Outpatient (CLI) | payer BC, SELFPAY ==
[2019-09-07 10:19] VITALS: BMI 34.3
[2019-09-14 12:53] LABS: HPV APTIMA, High Risk Negative (Negative)
== END ==
PROVIDERS: Referring Provider Nurse Practitioner Women's Health; Visit Provider Nurse Practitioner Women's Health
DX: Z12.4 Encounter for screening for malignant neoplasm of cervix (principal)
CPT/HCPCS: 87624; 88175; G0145